=== PATIENT | male | born 1995 | race Caucasian/White ===

== ENCOUNTER 2018-01-10 08:04 | Emergency (ER) | payer OTHER ==
[~2018-01-10] VITALS: Ht 182.9 cm; Wt 75.0 kg
[2018-01-10 11:12] VITALS: BP 121/61; PULSE 85; TEMP 98.6
== END 2018-01-10 11:11 | disposition home or self-care (01) ==
LOC: COL.ER 08:04
DX: J11.1 Influenza due to unidentified influenza virus with other respiratory manifestations (principal); B34.9 Viral infection, unspecified
CPT/HCPCS: J1200; J1885; J7030